=== PATIENT | female | born 1965 | race Caucasian/White ===

== ENCOUNTER 2016-08-15 21:13 | Emergency (ER) | payer SELFPAY ==
[~2016-08-15] VITALS: Ht 152.4 cm; Wt 59.1 kg
[2016-08-16] MEDS ORDERED: SODIUM CHLORIDE 0.9% 1,000 ML IV ONE (01:45)
[2016-08-16] MEDS ORDERED: KETOROLAC TROMETHAMINE 30 MG/ML VIAL IVP ONE (01:45)
[2016-08-16] MEDS ORDERED: ACETAMINOPHEN 500 MG TABLET PO ONE (01:45)
[2016-08-16] MEDS ORDERED: ONDANSETRON HCL 4 MG/2 ML VIAL IVP ONE (01:45)
[2016-08-16 02:28] LABS: HEMATOCRIT 41.8 % (36-46); MEAN CORPUSCULAR HEMOGLOBIN 27.2 pg (26.0-34.0); MEAN CORPUSCULAR HGB CONC 33.4 G/dL (31.0-37.0); MEAN CORPUSCULAR VOLUME 81 fL (80-100); PLATELET COUNT (AUTO) 183 K/uL (150-450); RED BLOOD CELL COUNT(AUTO) 5.13 MIL/uL (4.00-5.20); RED CELL DISTRIBUTION WIDTH 15.6 % (11.5-14.5); WHITE BLOOD COUNT (AUTO) 6.4 K/uL (4.5-11.0)
[2016-08-16 02:31] LABS: CALCIUM, TOTAL 8.2 mg/dL (8.8-10.5); CREATININE 1.03 mg/dL (0.60-1.30); POTASSIUM 3.4 mmol/L (3.5-5.1)
[2016-08-16 03:13] LABS: TOTAL CELLS COUNTED 100
[2016-08-16 03:14] LABS: LYMPHOCYTES % (MANUAL) 22 % (22-44)
[2016-08-16 03:45] VITALS: BP 108/89
== END 2016-08-16 03:47 | disposition home or self-care (01) ==
LOC: EMS 21:26
DX: J06.9 Acute upper respiratory infection, unspecified (principal); R07.89 Other chest pain
CPT/HCPCS: 36415; 80048; 84703; 85025; 96361; 96374; 96375; 99285; J1885; J2405; J7030

== ENCOUNTER 2017-09-20 01:19 | Emergency (ER) | payer MEDICAID ==
[~2017-09-20] VITALS: Ht 149.9 cm; Wt 59.1 kg
[2017-09-20] MEDS ORDERED: NEOMYCIN/POLYMYXIN B/GRAMICIDIN 10 ML OPHTHALMIC SOLUTION OU ONE (02:30)
[2017-09-20 03:29] VITALS: BP 121/76
== END 2017-09-20 03:47 | disposition home or self-care (01) ==
LOC: EMS 01:19
DX: H10.9 Unspecified conjunctivitis (principal)
CPT/HCPCS: 99282

== ENCOUNTER 2017-10-09 21:22 | Emergency (ER) | payer MEDICAID ==
[~2017-10-09] VITALS: Ht 149.9 cm; Wt 59.0 kg
[2017-10-09 23:09] LABS: BASOPHILS % (AUTO) 1.1 % (0.0-2.0); EOSINOPHILS % (AUTO) 0.6 % (1.0-6.0); HEMATOCRIT 39.3 % (36-46); HEMOGLOBIN 13.3 g/dL (12.0-16.0); LYMPHOCYTES # (AUTO) 2.2 K/uL (1.0-4.8); LYMPHOCYTES % (AUTO) 38.3 % (22.0-44.0); MEAN CORPUSCULAR HEMOGLOBIN 27.7 pg (26.0-34.0); MEAN CORPUSCULAR HGB CONC 33.8 G/dL (31.0-37.0); MEAN CORPUSCULAR VOLUME 82 fL (80-100); MONOCYTES # (AUTO) 0.5 K/uL (0.1-1.0); PLATELET COUNT (AUTO) 196 K/uL (150-450); RED BLOOD CELL COUNT(AUTO) 4.79 MIL/uL (4.00-5.20); RED CELL DISTRIBUTION WIDTH 14.8 % (11.5-14.5)
[2017-10-09 23:19] LABS: HEMOGLOBIN A1C 6.8 % (4.5-6.2)
[2017-10-09 23:20] LABS: ANION GAP 7 mmol/L (8-16); CALCIUM, TOTAL 8.8 mg/dL (8.8-10.5); CARBON DIOXIDE 29 mmol/L (22-29); CHLORIDE 104 mmol/L (98-107); CREATININE 0.95 mg/dL (0.60-1.30); GLOMERULAR FILTR. RATE CALC > 60 mL/min (>60); GLUCOSE,RANDOM 142 mg/dL (70-110); POTASSIUM 3.6 mmol/L (3.5-5.1); SODIUM SERUM 140 mmol/L (136-145); UREA NITROGEN, BLOOD 17 mg/dL (7-18)
[2017-10-09 23:35] LABS: ALANINE AMINOTRANSFERASE 27 U/L (12-78); ALBUMIN 3.6 g/dL (3.4-5.0); ALKALINE PHOSPHATASE 99 U/L (46-116); ASPARTATE AMINOTRANSFERASE 21 U/L (15-37); BILIRUBIN,TOTAL 0.3 mg/dL (0.1-1.0); TOTAL PROTEIN, SERUM 8.2 g/dL (6.4-8.2)
[2017-10-10] LABS: PLATELET MORPHOLOGY COMMENT LARGE PLTS PRESENT
[2017-10-10 00:14] VITALS: BP 116/63
== END 2017-10-10 00:30 | disposition home or self-care (01) ==
LOC: EMS 21:23
DX: L65.9 Nonscarring hair loss, unspecified (principal); F41.9 Anxiety disorder, unspecified; R73.9 Hyperglycemia, unspecified
CPT/HCPCS: 83036; 84443; 99284

== ENCOUNTER 2018-02-10 10:00 | Emergency (ER) | payer MEDICAID ==
[~2018-02-10] VITALS: Ht 160 cm; Wt 63.6 kg
[2018-02-10 10:02] VITALS: BP 158/93
== END 2018-02-10 10:45 | disposition left against medical advice (07) ==
LOC: EMS 10:01
DX: J02.9 Acute pharyngitis, unspecified (principal); Z53.21 Procedure and treatment not carried out due to patient leaving prior to being seen by health care provider

== ENCOUNTER 2018-02-10 18:06 | Emergency (ER) | payer MEDICAID ==
[~2018-02-10] VITALS: Ht 149.9 cm; Wt 61.4 kg
[2018-02-10] MEDS ORDERED: IBUPROFEN 600 MG TABLET PO ONE (18:45)
[2018-02-10] MEDS ORDERED: MAALOX/LIDOCAINE/NYSTATIN SUSP 5 ML ORAL.SYG MM ONE (18:45)
[2018-02-10 20:05] VITALS: BP 140/80
== END 2018-02-10 20:20 | disposition home or self-care (01) ==
LOC: EMS 18:08
DX: J02.9 Acute pharyngitis, unspecified (principal); K14.6 Glossodynia; L98.9 Disorder of the skin and subcutaneous tissue, unspecified
CPT/HCPCS: 87430; 99283

== ENCOUNTER 2018-07-17 17:05 | Emergency (ER) | payer MEDICAID ==
[~2018-07-17] VITALS: Ht 149.9 cm; Wt 68.2 kg
[2018-07-17] MEDS ORDERED: KETOROLAC TROMETHAMINE 30 MG/ML VIAL IVP ONE (22:15)
[2018-07-17] MEDS ORDERED: SODIUM CHLORIDE 0.9% 1,000 ML IV ONE (22:15)
[2018-07-17] MEDS ORDERED: PROCHLORPERAZINE EDISYLATE 5 MG/ML 2 ML VIAL IVP ONE (22:15)
[2018-07-17] MEDS ORDERED: DiphenhydrAMINE HCL 50 MG/ML VIAL IVP ONE (22:15)
[2018-07-17 22:25] LABS: BASOPHILS % (AUTO) 0.8 % (0.0-2.0); EOSINOPHILS % (AUTO) 0.4 % (1.0-6.0); HEMATOCRIT 40.9 % (36-46); HEMOGLOBIN 13.6 g/dL (12.0-16.0); LYMPHOCYTES # (AUTO) 2.6 K/uL (1.0-4.8); MEAN CORPUSCULAR HEMOGLOBIN 27.9 pg (26.0-34.0); MEAN CORPUSCULAR HGB CONC 33.3 G/dL (31.0-37.0); MEAN CORPUSCULAR VOLUME 84 fL (80-100); MONOCYTES # (AUTO) 0.4 K/uL (0.1-1.0); MONOCYTES % (AUTO) 6.9 % (2.0-9.0); NEUTROPHILS # (AUTO) 2.7 K/uL (1.8-7.7); NEUTROPHILS % (AUTO) 46.9 % (40.0-70.0); PLATELET COUNT (AUTO) 189 K/uL (150-450); RED BLOOD CELL COUNT(AUTO) 4.89 MIL/uL (4.00-5.20)
[2018-07-17 22:53] LABS: ALBUMIN 3.3 g/dL (3.4-5.0); BILIRUBIN,TOTAL 0.3 mg/dL (0.1-1.0); CALCIUM, TOTAL 9.2 mg/dL (8.8-10.5); CREATININE 1.1 mg/dL (0.60-1.30); POTASSIUM 4.2 mmol/L (3.5-5.1); TOTAL PROTEIN, SERUM 8.2 g/dL (6.4-8.2)
[2018-07-17] MEDS ORDERED: ALBUTEROL SULFATE 2.5 MG/0.5 ML NEB SOLUTION NEB PRN (23:00)
[2018-07-17] MEDS ORDERED: IPRATROPIUM BROMIDE 0.5 MG/2.5 ML NEB SOLUTION NEB PRN (23:00)
[2018-07-17 23:38] LABS: AMPHET/METH SCREEN,URINE POSITIVE (NEGATIVE); BARBITURATE SCREEN, URINE NEGATIVE (NEGATIVE); BENZODIAZEPINES SCREEN,URINE NEGATIVE (NEGATIVE); CANNABINOID SCREEN,URINE NEGATIVE (NEGATIVE); COCAINE SCREEN,URINE NEGATIVE (NEGATIVE); METHADONE SCREEN, URINE NEGATIVE (NEGATIVE); OPIATE SCREEN,URINE NEGATIVE (NEGATIVE)
[2018-07-17 23:40] LABS: PHENCYCLIDINE SCREEN,URINE NEGATIVE (NEGATIVE)
[2018-07-18 00:38] LABS: GLUCOSE,POINT OF CARE 423 MG/DL (70-110)
[2018-07-18] MEDS ORDERED: INSULIN REGULAR, HUMAN 100 UNITS/ML IVP ONE (00:45)
[2018-07-18 01:55] LABS: APPEARANCE,URINE CLEAR (CLEAR); BILIRUBIN,URINE NEGATIVE (NEGATIVE); GLUCOSE, URINE (UA) >=1000 mg/dL (NEGATIVE); KETONES,URINE NEGATIVE (NEGATIVE); LEUKOCYTE ESTERASE ,URINE NEGATIVE (NEGATIVE); NITRATE,URINE NEGATIVE (NEGATIVE); OCCULT BLOOD,URINE NEGATIVE (NEGATIVE); PH,URINE 5.5 (5.0-8.0); PROTEIN,URINE NEGATIVE (NEGATIVE); UROBILINOGEN,URINE 0.2 mg/dL (<=1.0)
[2018-07-18 02:39] LABS: BACTERIA,URINE None Seen /HPF (None Seen); RBC,URINE 0-2 /HPF (0-2); SQUAMOUS EPITHELIAL CELL,UR Rare /LPF (None Seen); WBC,URINE 0-2 /HPF (0-5)
[2018-07-18 03:04] LABS: GLUCOSE,POINT OF CARE 227 MG/DL (70-110)
[2018-07-18 04:31] VITALS: BP 115/69
== END 2018-07-18 04:35 | disposition home or self-care (01) ==
LOC: EMS 17:06
DX: R51 Headache (principal); R73.9 Hyperglycemia, unspecified; M54.2 Cervicalgia
CPT/HCPCS: 36415; 80053; 80307; 81001; 82962; 84702; 85025; 96374; 96375; 99283; J0780; J1200; J1815; J1885; J7030; 96361

== ENCOUNTER 2018-07-24 20:52 | Emergency (ER) | payer MEDICAID ==
[~2018-07-24] VITALS: Ht 149.9 cm; Wt 69.1 kg
[2018-07-24] MEDS ORDERED: NAPR-1193 PO (21:02)
[2018-07-24] MEDS ORDERED: SERT50TA12 PO (21:02)
[2018-07-24] MEDS ORDERED: METF-960 PO (21:02)
[2018-07-24] MEDS ORDERED: AMIT25TA9 PO (21:02)
[2018-07-24] MEDS ORDERED: INSU100I26 SQ (21:02)
[2018-07-24] MEDS ORDERED: SUMA100T PO (21:02)
[2018-07-24] MEDS ORDERED: SODIUM CHLORIDE 0.9% 1,000 ML IV ONE (21:45)
[2018-07-24 22:18] LABS: BASOPHILS % (AUTO) 1.5 % (0.0-2.0); EOSINOPHILS % (AUTO) 0.8 % (1.0-6.0); HEMATOCRIT 43.3 % (36-46); HEMOGLOBIN 14.3 g/dL (12.0-16.0); LYMPHOCYTES # (AUTO) 2.7 K/uL (1.0-4.8); LYMPHOCYTES % (AUTO) 40.9 % (22.0-44.0); MEAN CORPUSCULAR HEMOGLOBIN 27.2 pg (26.0-34.0); MEAN CORPUSCULAR VOLUME 83 fL (80-100); MONOCYTES # (AUTO) 0.5 K/uL (0.1-1.0); MONOCYTES % (AUTO) 7.7 % (2.0-9.0); NEUTROPHILS # (AUTO) 3.3 K/uL (1.8-7.7); NEUTROPHILS % (AUTO) 49.1 % (40.0-70.0); PLATELET COUNT (AUTO) 164 K/uL (150-450); RED BLOOD CELL COUNT(AUTO) 5.25 MIL/uL (4.00-5.20); RED CELL DISTRIBUTION WIDTH 13.7 % (11.5-14.5)
[2018-07-24 22:32] LABS: ALBUMIN 3.6 g/dL (3.4-5.0); BILIRUBIN,TOTAL 0.4 mg/dL (0.1-1.0); CALCIUM, TOTAL 9.3 mg/dL (8.8-10.5); CREATININE 1.05 mg/dL (0.60-1.30); POTASSIUM 3.6 mmol/L (3.5-5.1); TOTAL PROTEIN, SERUM 8.5 g/dL (6.4-8.2)
[2018-07-24 22:39] LABS: GLUCOSE,POINT OF CARE 411 MG/DL (70-110)
[2018-07-25 00:24] LABS: GLUCOSE,POINT OF CARE 385 MG/DL (70-110)
[2018-07-25] MEDS ORDERED: INSULIN REGULAR, HUMAN 100 UNITS/ML IVP ONE (00:30)
[2018-07-25 01:40] VITALS: BP 138/96
== END 2018-07-25 01:49 | disposition home or self-care (01) ==
LOC: EMS 20:53
DX: E11.65 Type 2 diabetes mellitus with hyperglycemia (principal); G43.909 Migraine, unspecified, not intractable, without status migrainosus; F41.9 Anxiety disorder, unspecified; F32.9 Major depressive disorder, single episode, unspecified; Z79.84 Long term (current) use of oral hypoglycemic drugs; Z79.4 Long term (current) use of insulin
CPT/HCPCS: 36415; 80053; 82962; 85025; 96361; 96374; 99283; J1815; J7030

== ENCOUNTER 2020-11-23 23:51 | Emergency (ER) | payer MEDICAID, OTHER ==
[~2020-11-23] VITALS: Ht 149.9 cm; Wt 59.1 kg
[~2020-11-23 23:51] MED LIST: AMIT25TA9 PO; INSU100I26 SQ; METF-960 PO; NAPR-1193 PO; SERT-158 PO; SUMA100T PO
[2020-11-24 00:40] LABS: APPEARANCE,URINE CLEAR (CLEAR); BILIRUBIN,URINE NEGATIVE (NEGATIVE); GLUCOSE, URINE (UA) >=1000 mg/dL (NEGATIVE); KETONES,URINE NEGATIVE (NEGATIVE); LEUKOCYTE ESTERASE ,URINE NEGATIVE (NEGATIVE); NITRATE,URINE NEGATIVE (NEGATIVE); OCCULT BLOOD,URINE NEGATIVE (NEGATIVE); PROTEIN,URINE NEGATIVE (NEGATIVE); UROBILINOGEN,URINE 0.2 mg/dL (<=1.0)
[2020-11-24 00:50] LABS: RBC,URINE None Seen /HPF (0-2); SQUAMOUS EPITHELIAL CELL,UR Rare /LPF (None Seen)
[2020-11-24 00:51] LABS: BACTERIA,URINE Rare /HPF (None Seen); WBC,URINE 0-2 /HPF (0-5)
[2020-11-24 01:19] LABS: BASOPHILS % (AUTO) 1.1 % (0.0-2.0); EOSINOPHILS % (AUTO) 0.8 % (1.0-6.0); HEMATOCRIT 34.1 % (36-46); HEMOGLOBIN 10.7 g/dL (12.0-16.0); LYMPHOCYTES # (AUTO) 3.1 K/uL (1.0-4.8); MEAN CORPUSCULAR HEMOGLOBIN 23.1 pg (26.0-34.0); MEAN CORPUSCULAR HGB CONC 31.3 G/dL (31.0-37.0); MEAN CORPUSCULAR VOLUME 74 fL (80-100); MONOCYTES # (AUTO) 0.5 K/uL (0.1-1.0); MONOCYTES % (AUTO) 6.7 % (2.0-9.0); NEUTROPHILS # (AUTO) 4.1 K/uL (1.8-7.7); NEUTROPHILS % (AUTO) 52.4 % (40.0-70.0); PLATELET COUNT (AUTO) 269 K/uL (150-450); RED BLOOD CELL COUNT(AUTO) 4.62 MIL/uL (4.00-5.20); RED CELL DISTRIBUTION WIDTH 15.3 % (11.5-14.5)
[2020-11-24 01:35] LABS: INR 0.9 (0.9-1.1); PROTHROMBIN TIME 9.8 SEC (9.4-11.6)
[2020-11-24 01:37] LABS: ALANINE AMINOTRANSFERASE 32 U/L (12-78); ALBUMIN 2.8 g/dL (3.4-5.0); ALKALINE PHOSPHATASE 236 U/L (46-116); ANION GAP 10 mmol/L (8-16); ASPARTATE AMINOTRANSFERASE 20 U/L (15-37); BILIRUBIN,TOTAL 0.2 mg/dL (0.1-1.0); CALCIUM, TOTAL 8.5 mg/dL (8.8-10.5); CARBON DIOXIDE 24 mmol/L (22-29); CHLORIDE 95 mmol/L (98-107); CREATINE KINASE, TOTAL ONLY 48 U/L (26-192); CREATININE 0.89 mg/dL (0.60-1.30); GLOMERULAR FILTR. RATE CALC > 60 mL/min (>60); POTASSIUM 3.7 mmol/L (3.5-5.1); SODIUM SERUM 129 mmol/L (136-145); TOTAL PROTEIN, SERUM 7.8 g/dL (6.4-8.2); UREA NITROGEN, BLOOD 15 mg/dL (7-18)
[2020-11-24 01:41] LABS: B-TYPE NATRIURETIC PEPTIDE 16 pg/mL (0-100)
[2020-11-24 01:58] LABS: GLUCOSE,RANDOM 570 mg/dL (70-110)
[2020-11-24 02:55] LABS: LACTIC ACID 2.4 mmol/L (0.4-2.0)
[2020-11-24 03:52] LABS: GLUCOMETER DEV NAME(LOC) ERT.5; GLUCOSE,POINT OF CARE 480 MG/DL (70-110)
[2020-11-24] MEDS ORDERED: INSULIN REGULAR, HUMAN 100 UNITS/ML IVP ONE (04:45)
[2020-11-24] MEDS ORDERED: SODIUM CHLORIDE 0.9% 2,000 ML IV ONE (05:30)
[2020-11-24 06:05] LABS: GLUCOMETER DEV NAME(LOC) ERT.5; GLUCOSE,POINT OF CARE 347 MG/DL (70-110)
[2020-11-24 06:32] LABS: ANION GAP 10 mmol/L (8-16); CALCIUM, TOTAL 7.5 mg/dL (8.8-10.5); CARBON DIOXIDE 23 mmol/L (22-29); CHLORIDE 104 mmol/L (98-107); CREATININE 0.61 mg/dL (0.60-1.30); GLOMERULAR FILTR. RATE CALC > 60 mL/min (>60); GLUCOSE,RANDOM 379 mg/dL (70-110); POTASSIUM 3.4 mmol/L (3.5-5.1); SODIUM SERUM 137 mmol/L (136-145); UREA NITROGEN, BLOOD 13 mg/dL (7-18)
[2020-11-24 06:40] LABS: ALANINE AMINOTRANSFERASE 25 U/L (12-78); ALBUMIN 2.2 g/dL (3.4-5.0); ALKALINE PHOSPHATASE 168 U/L (46-116); ASPARTATE AMINOTRANSFERASE 15 U/L (15-37); BILIRUBIN,TOTAL 0.1 mg/dL (0.1-1.0); TOTAL PROTEIN, SERUM 6.2 g/dL (6.4-8.2)
[2020-11-24 06:58] VITALS: BP 146/84
[2020-11-24 06:59] LABS: GLUCOMETER DEV NAME(LOC) ERT.5; GLUCOSE,POINT OF CARE 314 MG/DL (70-110)
== END 2020-11-24 07:03 | disposition home or self-care (01) ==
LOC: EMS 23:55
DX: E11.65 Type 2 diabetes mellitus with hyperglycemia (principal); E87.2 Acidosis; F32.9 Major depressive disorder, single episode, unspecified; F41.9 Anxiety disorder, unspecified; Z91.14 Patient's other noncompliance with medication regimen; Z79.84 Long term (current) use of oral hypoglycemic drugs; Z79.899 Other long term (current) drug therapy
CPT/HCPCS: 36415; 71045; 80053; 81001; 82550; 82962; 83605; 83880; 84484; 85025; 85610; 85730; 93005; 96361; 96374; 99285; J1815; J7030; 99283

== ENCOUNTER 2020-12-25 14:27 | Emergency (ER) | payer OTHER ==
[~2020-12-25] VITALS: Ht 149.9 cm; Wt 65.9 kg
[~2020-12-25 14:27] MED LIST changes: +AMIT25TA10 PO; -AMIT25TA9 PO
[2020-12-25 17:45] LABS: BASOPHILS % (AUTO) 0.6 % (0.0-2.0); EOSINOPHILS % (AUTO) 0.6 % (1.0-6.0); HEMATOCRIT 31.6 % (36-46); HEMOGLOBIN 9.7 g/dL (12.0-16.0); LYMPHOCYTES # (AUTO) 2.6 K/uL (1.0-4.8); LYMPHOCYTES % (AUTO) 31.3 % (22.0-44.0); MEAN CORPUSCULAR HEMOGLOBIN 21.7 pg (26.0-34.0); MEAN CORPUSCULAR HGB CONC 30.7 G/dL (31.0-37.0); MEAN CORPUSCULAR VOLUME 71 fL (80-100); MONOCYTES # (AUTO) 0.4 K/uL (0.1-1.0); NEUTROPHILS # (AUTO) 5.3 K/uL (1.8-7.7); NEUTROPHILS % (AUTO) 62.5 % (40.0-70.0); PLATELET COUNT (AUTO) 304 K/uL (150-450); RED BLOOD CELL COUNT(AUTO) 4.46 MIL/uL (4.00-5.20); RED CELL DISTRIBUTION WIDTH 15.9 % (11.5-14.5)
[2020-12-25 17:57] LABS: ANION GAP 8 mmol/L (8-16); CALCIUM, TOTAL 8.6 mg/dL (8.8-10.5); CARBON DIOXIDE 24 mmol/L (22-29); CHLORIDE 101 mmol/L (98-107); CREATININE 0.77 mg/dL (0.60-1.30); GLOMERULAR FILTR. RATE CALC > 60 mL/min (>60); GLUCOSE,RANDOM 296 mg/dL (70-110); POTASSIUM 3.5 mmol/L (3.5-5.1); SODIUM SERUM 133 mmol/L (136-145); UREA NITROGEN, BLOOD 17 mg/dL (7-18)
[2020-12-25] MEDS ORDERED: KETOROLAC TROMETHAMINE 30 MG/ML VIAL IVP ONE (18:00)
[2020-12-25] MEDS ORDERED: SODIUM CHLORIDE 0.9% 1,000 ML IV ONE ×2 (18:00→19:00)
[2020-12-25 18:08] LABS: ALANINE AMINOTRANSFERASE 25 U/L (12-78); ALBUMIN 3.1 g/dL (3.4-5.0); ALKALINE PHOSPHATASE 129 U/L (46-116); ASPARTATE AMINOTRANSFERASE 18 U/L (15-37); BILIRUBIN,TOTAL 0.3 mg/dL (0.1-1.0); HCG,QUANTITATIVE 5 mIU/mL (0-6); LIPASE 139 U/L (73-393); TOTAL PROTEIN, SERUM 7.6 g/dL (6.4-8.2)
[2020-12-25 18:33] LABS: COVID AG,FIA SOURCE NASOPHARYNGEAL
[2020-12-25 18:53] VITALS: BP 134/91
[2020-12-25 19:59] LABS: APPEARANCE,URINE CLOUDY (CLEAR); BILIRUBIN,URINE NEGATIVE (NEGATIVE); GLUCOSE, URINE (UA) >=1000 mg/dL (NEGATIVE); KETONES,URINE NEGATIVE (NEGATIVE); LEUKOCYTE ESTERASE ,URINE NEGATIVE (NEGATIVE); NITRATE,URINE NEGATIVE (NEGATIVE); OCCULT BLOOD,URINE NEGATIVE (NEGATIVE); PH,URINE 5.5 (5.0-8.0); PROTEIN,URINE NEGATIVE (NEGATIVE); UROBILINOGEN,URINE 0.2 mg/dL (<=1.0)
[2020-12-25 20:11] LABS: RBC,URINE None Seen /HPF (0-2)
[2020-12-25 20:12] LABS: BACTERIA,URINE Few /HPF (None Seen); SQUAMOUS EPITHELIAL CELL,UR Few /LPF (None Seen)
== END 2020-12-25 20:54 | disposition home or self-care (01) ==
LOC: EMS 14:28
DX: E11.65 Type 2 diabetes mellitus with hyperglycemia (principal); N39.0 Urinary tract infection, site not specified; R91.1 Solitary pulmonary nodule; Z20.822 Contact with and (suspected) exposure to COVID-19
CPT/HCPCS: 36415; 74176; 80053; 81001; 83690; 84702; 85025; 87086; 87426; 96361; 96374; 99285; J1885; J7030

== ENCOUNTER 2021-04-02 22:20 | Emergency (ER) | payer OTHER ==
[~2021-04-02] VITALS: Ht 149.9 cm; Wt 63.6 kg
[~2021-04-02 22:20] MED LIST changes: +METF-1211 PO; -METF-960 PO
[2021-04-02 23:28] VITALS: BP 132/68
[2021-04-02 23:32] LABS: GLUCOMETER DEV NAME(LOC) ERT.5; GLUCOSE,POINT OF CARE 518 MG/DL (70-110)
[2021-04-02] MEDS ORDERED: SODIUM CHLORIDE 0.9% 2,000 ML IV ONE (23:45)
[2021-04-02] MEDS ORDERED: INSULIN REGULAR, HUMAN 100 UNITS/ML IVP ONE (23:45)
[2021-04-02 23:49] LABS: BASOPHILS % (AUTO) 0.6 % (0.0-2.0); EOSINOPHILS % (AUTO) 0.4 % (1.0-6.0); HEMATOCRIT 29.1 % (36-46); HEMOGLOBIN 8.4 g/dL (12.0-16.0); LYMPHOCYTES # (AUTO) 1.9 K/uL (1.0-4.8); LYMPHOCYTES % (AUTO) 21.5 % (22.0-44.0); MEAN CORPUSCULAR HEMOGLOBIN 19.4 pg (26.0-34.0); MEAN CORPUSCULAR HGB CONC 28.9 G/dL (31.0-37.0); MEAN CORPUSCULAR VOLUME 67 fL (80-100); MONOCYTES # (AUTO) 0.5 K/uL (0.1-1.0); MONOCYTES % (AUTO) 5.1 % (2.0-9.0); NEUTROPHILS # (AUTO) 6.6 K/uL (1.8-7.7); NEUTROPHILS % (AUTO) 72.4 % (40.0-70.0); PLATELET COUNT (AUTO) 358 K/uL (150-450); RED BLOOD CELL COUNT(AUTO) 4.34 MIL/uL (4.00-5.20); RED CELL DISTRIBUTION WIDTH 16.5 % (11.5-14.5)
[2021-04-02] MEDS ORDERED: DiphenhydrAMINE HCL 50 MG/ML VIAL IVP STA (23:55)
[2021-04-03] MEDS ORDERED: METOCLOPRAMIDE HCL 5 MG/ML 2 ML VIAL IVP ONE
[2021-04-03] MEDS ORDERED: KETOROLAC TROMETHAMINE 30 MG/ML VIAL IVP ONE
[2021-04-03] MEDS ORDERED: ACETAMINOPHEN 500 MG TABLET PO ONE
[2021-04-03 00:02] LABS: ALBUMIN 2.9 g/dL (3.4-5.0); BILIRUBIN,TOTAL 0.2 mg/dL (0.1-1.0); CALCIUM, TOTAL 8.8 mg/dL (8.8-10.5); CREATININE 1.11 mg/dL (0.60-1.30); POTASSIUM 4.3 mmol/L (3.5-5.1); TOTAL PROTEIN, SERUM 8.2 g/dL (6.4-8.2)
[2021-04-03 01:36] LABS: APPEARANCE,URINE CLEAR (CLEAR); BILIRUBIN,URINE NEGATIVE (NEGATIVE); GLUCOSE, URINE (UA) >=1000 mg/dL (NEGATIVE); KETONES,URINE NEGATIVE (NEGATIVE); LEUKOCYTE ESTERASE ,URINE NEGATIVE (NEGATIVE); NITRATE,URINE NEGATIVE (NEGATIVE); OCCULT BLOOD,URINE NEGATIVE (NEGATIVE); PH,URINE 6.5 (5.0-8.0); PROTEIN,URINE NEGATIVE (NEGATIVE); UROBILINOGEN,URINE 0.2 mg/dL (<=1.0)
[2021-04-03 01:38] LABS: BACTERIA,URINE Rare /HPF (None Seen); RBC,URINE 0-2 /HPF (0-2); WBC,URINE 0-2 /HPF (0-5)
[2021-04-03 02:19] LABS: GLUCOMETER DEV NAME(LOC) ERT.5; GLUCOSE,POINT OF CARE 238 MG/DL (70-110)
== END 2021-04-03 03:11 | disposition home or self-care (01) ==
LOC: EMS 22:24
DX: E11.65 Type 2 diabetes mellitus with hyperglycemia (principal); D50.9 Iron deficiency anemia, unspecified; G43.909 Migraine, unspecified, not intractable, without status migrainosus; F41.9 Anxiety disorder, unspecified; F32.9 Major depressive disorder, single episode, unspecified; Z79.84 Long term (current) use of oral hypoglycemic drugs; Z79.4 Long term (current) use of insulin
CPT/HCPCS: 36415; 80053; 81001; 82962; 83690; 85025; 93005; 96361; 96374; 96375; 99284; J1200; J1815; J1885; J2765; J7030; 82948

== ENCOUNTER 2021-09-16 14:26 | Emergency (ER) | payer OTHER ==
[~2021-09-16] VITALS: Ht 149.9 cm; Wt 63.6 kg
[2021-09-16] MEDS ORDERED: SODIUM CHLORIDE 0.9% 1,000 ML IV ONE (15:15)
[2021-09-16] MEDS ORDERED: INSULIN REGULAR, HUMAN 100 UNITS/ML IVP ONE (15:15)
[2021-09-16 15:37] LABS: CALCIUM, TOTAL 8.9 mg/dL (8.8-10.5); CREATININE 1.12 mg/dL (0.60-1.30); POTASSIUM 4.3 mmol/L (3.5-5.1)
[2021-09-16] MEDS ORDERED: SULF-261 PO (15:51)
[2021-09-16] MEDS ORDERED: CEPH-558 PO (15:51)
[2021-09-16 16:19] VITALS: BP 176/80
[2021-09-16] MEDS ORDERED: SUMA100T PO (16:23)
[2021-09-16] MEDS ORDERED: INSLAN SQ (16:23)
[2021-09-16 16:31] LABS: GLUCOSE,POINT OF CARE 234 MG/DL (70-110)
== END 2021-09-16 16:51 | disposition home or self-care (01) ==
LOC: EMS 14:26
DX: E11.65 Type 2 diabetes mellitus with hyperglycemia (principal); L02.411 Cutaneous abscess of right axilla; F41.9 Anxiety disorder, unspecified; F32.9 Major depressive disorder, single episode, unspecified; E11.9 Type 2 diabetes mellitus without complications; G43.909 Migraine, unspecified, not intractable, without status migrainosus; Z79.4 Long term (current) use of insulin; Z79.84 Long term (current) use of oral hypoglycemic drugs
CPT/HCPCS: 36415; 80048; 82962; 96361; 96374; 99283; J1815; J7030

== ENCOUNTER 2021-10-11 01:30 | Emergency (ER) | payer OTHER ==
[~2021-10-11] VITALS: Ht 149.9 cm; Wt 59.1 kg
[~2021-10-11 01:30] MED LIST changes: +CEPH-558 PO; +INSLAN SQ; +SULF-261 PO
[2021-10-11] MEDS ORDERED: INSLAN SQ (01:41)
[2021-10-11] MEDS ORDERED: METF-1211 PO (01:41)
[2021-10-11 02:19] LABS: COVID AG,FIA SOURCE NASAL SWAB
[2021-10-11 02:25] LABS: BASOPHILS % (AUTO) 0.8 % (0.0-2.0); EOSINOPHILS % (AUTO) 0.6 % (1.0-6.0); HEMATOCRIT 24.6 % (36-46); LYMPHOCYTES # (AUTO) 1.8 K/uL (1.0-4.8); LYMPHOCYTES % (AUTO) 21.6 % (22.0-44.0); MEAN CORPUSCULAR HEMOGLOBIN 17.4 pg (26.0-34.0); MEAN CORPUSCULAR HGB CONC 28.1 G/dL (31.0-37.0); MEAN CORPUSCULAR VOLUME 62 fL (80-100); MONOCYTES # (AUTO) 0.5 K/uL (0.1-1.0); MONOCYTES % (AUTO) 6.1 % (2.0-9.0); NEUTROPHILS % (AUTO) 70.9 % (40.0-70.0); PLATELET COUNT (AUTO) 369 K/uL (150-450); RED BLOOD CELL COUNT(AUTO) 3.97 MIL/uL (4.00-5.20)
[2021-10-11 02:35] LABS: HEMOGLOBIN 6.9 g/dL (12.0-16.0)
[2021-10-11 02:36] LABS: ALBUMIN 2.7 g/dL (3.4-5.0); BILIRUBIN,TOTAL 0.2 mg/dL (0.1-1.0); CALCIUM, TOTAL 8.1 mg/dL (8.8-10.5); CREATININE 1.2 mg/dL (0.60-1.30); POTASSIUM 3.8 mmol/L (3.5-5.1); TOTAL PROTEIN, SERUM 7.5 g/dL (6.4-8.2)
[2021-10-11] MEDS ORDERED: SODIUM CHLORIDE 0.9% 2,000 ML IV ONE (04:00)
[2021-10-11] MEDS ORDERED: INSULIN REGULAR, HUMAN 100 UNITS/ML IVP ONE (04:00)
[2021-10-11 04:26] LABS: % IRON SATURATION 2.7 % (22-44)
[2021-10-11] MEDS ORDERED: IRON SUCROSE COMPLEX 100 MG in SODIUM CHLORIDE 0.9% 100 ML IV ONE (06:00)
[2021-10-11] MEDS ORDERED: FERR325T27 PO (06:07)
[2021-10-11 06:11] LABS: GLUCOMETER DEV NAME(LOC) ERT.5; GLUCOSE,POINT OF CARE 146 MG/DL (70-110)
[2021-10-11 07:17] VITALS: BP 124/68
== END 2021-10-11 07:26 | disposition home or self-care (01) ==
LOC: EMS 01:31
DX: D50.9 Iron deficiency anemia, unspecified (principal); E11.65 Type 2 diabetes mellitus with hyperglycemia; F41.9 Anxiety disorder, unspecified; F32.9 Major depressive disorder, single episode, unspecified; Z79.4 Long term (current) use of insulin; Z79.899 Other long term (current) drug therapy; Z20.822 Contact with and (suspected) exposure to COVID-19
CPT/HCPCS: 36415; 71045; 80053; 82962; 83540; 83550; 83690; 84484; 85025; 86850; 86900; 86901; 86923; 87426; 93005; 96361; 96365; 96375; 99285; J1756; J1815; J7030; J7050

== ENCOUNTER 2021-10-23 17:48 | Emergency (ER) | payer OTHER ==
[~2021-10-23] VITALS: Ht 149.9 cm; Wt 63.6 kg
[~2021-10-23 17:48] MED LIST changes: -AMIT25TA10 PO; -CEPH-558 PO; +FERR325T27 PO; -INSU100I26 SQ; -NAPR-1193 PO; -SERT-158 PO; -SULF-261 PO
[2021-10-23 19:14] VITALS: BP 129/77
[2021-10-23 19:26] LABS: GLUCOSE,POINT OF CARE 401 MG/DL (70-110)
== END 2021-10-23 21:19 | disposition left against medical advice (07) ==
LOC: EMS 17:50
DX: R73.9 Hyperglycemia, unspecified (principal); Z53.21 Procedure and treatment not carried out due to patient leaving prior to being seen by health care provider
CPT/HCPCS: 82962

== ENCOUNTER 2022-03-15 05:34 | Emergency (ER) | payer OTHER ==
[~2022-03-15] VITALS: Ht 149.9 cm; Wt 54.5 kg
[2022-03-15 08:22] VITALS: BP 135/80
== END 2022-03-15 08:23 | disposition home or self-care (01) ==
LOC: EMS 05:39
DX: Z48.02 Encounter for removal of sutures (principal); F41.9 Anxiety disorder, unspecified; F32.A Depression, unspecified; E11.9 Type 2 diabetes mellitus without complications; G43.909 Migraine, unspecified, not intractable, without status migrainosus; Z98.890 Other specified postprocedural states
CPT/HCPCS: 99281; Z7502

== ENCOUNTER 2023-02-05 21:05 | Emergency (ER) | payer OTHER ==
[~2023-02-05] VITALS: Ht 149.9 cm; Wt 54.5 kg
[~2023-02-05 21:05] MED LIST changes: -SUMA100T PO; +SUMA100T21 PO
[2023-02-05 22:07] VITALS: TEMP 97.7
[2023-02-05] MEDS ORDERED: GENTAMICIN SULFATE 0.3% OPHTHALMIC SOLUTION 5 ML OS ONE (22:30)
[2023-02-05] MEDS ORDERED: INSLAN SQ (22:34)
[2023-02-05 22:36] LABS: GLUCOMETER DEV NAME(LOC) ERT.5; GLUCOSE,POINT OF CARE > 600 MG/DL (70-110)
[2023-02-05] MEDS ORDERED: INSULIN REGULAR, HUMAN 100 UNITS/ML SQ ONE (22:45)
[2023-02-05] MEDS ORDERED: INSULIN GLARGINE,HUM.REC.ANLOG 100 UNITS/ML SQ ONE (22:45)
[2023-02-06] MEDS ORDERED: INSULIN REGULAR, HUMAN 100 UNITS/ML SQ ONE
[2023-02-06 00:06] LABS: GLUCOMETER DEV NAME(LOC) ERT.5; GLUCOSE,POINT OF CARE 556 MG/DL (70-110)
[2023-02-06 00:29] VITALS: BP 163/93; PULSE 99; RESP 20
== END 2023-02-06 00:37 | disposition home or self-care (01) ==
LOC: EMS 21:05
DX: H10.9 Unspecified conjunctivitis (principal); E11.65 Type 2 diabetes mellitus with hyperglycemia; Z98.890 Other specified postprocedural states
CPT/HCPCS: 99284; 82962; 96372; J1815 ×2

== ENCOUNTER 2023-05-08 06:23 | Emergency (ER) | payer OTHER ==
[~2023-05-08] VITALS: Ht 167.6 cm; Wt 81.8 kg
[2023-05-08] MEDS ORDERED: SODIUM CHLORIDE 0.9% 1,000 ML IV ONE (07:30)
[2023-05-08 07:59] LABS: EOSINOPHILS % (AUTO) 0.8 % (1.0-6.0); HEMATOCRIT 43.8 % (36-46); HEMOGLOBIN 15.2 g/dL (12.0-16.0); LYMPHOCYTES # (AUTO) 1.7 K/uL (1.0-4.8); LYMPHOCYTES % (AUTO) 32.4 % (22.0-44.0); MEAN CORPUSCULAR HEMOGLOBIN 30.3 pg (26.0-34.0); MEAN CORPUSCULAR HGB CONC 34.8 G/dL (31.0-37.0); MEAN CORPUSCULAR VOLUME 87 fL (80-100); MONOCYTES # (AUTO) 0.3 K/uL (0.1-1.0); MONOCYTES % (AUTO) 6.2 % (2.0-9.0); NEUTROPHILS # (AUTO) 3.2 K/uL (1.8-7.7); NEUTROPHILS % (AUTO) 59.6 % (40.0-70.0); PLATELET COUNT (AUTO) 151 K/uL (150-450); RED BLOOD CELL COUNT(AUTO) 5.03 MIL/uL (4.00-5.20); WHITE BLOOD COUNT (AUTO) 5.3 K/uL (4.5-11.0)
[2023-05-08 08:13] LABS: TROPONIN I-HIGH SENSITIVITY 11 ng/L (<51)
[2023-05-08 08:14] LABS: B-TYPE NATRIURETIC PEPTIDE 7 pg/mL (0-100)
[2023-05-08 08:16] LABS: ALANINE AMINOTRANSFERASE 22 U/L (12-78); ALBUMIN 3.7 g/dL (3.4-5.0); ALKALINE PHOSPHATASE 163 U/L (46-116); ANION GAP 9 mmol/L (8-16); ASPARTATE AMINOTRANSFERASE 10 U/L (15-37); BILIRUBIN,TOTAL 0.4 mg/dL (0.1-1.0); CALCIUM, TOTAL 9.6 mg/dL (8.8-10.5); CARBON DIOXIDE 26 mmol/L (22-29); CHLORIDE 99 mmol/L (98-107); CREATININE 0.68 mg/dL (0.60-1.30); GLOMERULAR FILTR. RATE CALC > 60 mL/min (>60); POTASSIUM 4.1 mmol/L (3.5-5.1); SODIUM SERUM 134 mmol/L (136-145); TOTAL PROTEIN, SERUM 8.4 g/dL (6.4-8.2); UREA NITROGEN, BLOOD 9 mg/dL (7-18)
[2023-05-08 08:20] LABS: GLUCOSE,RANDOM 434 mg/dL (70-110)
[2023-05-08 08:21] LABS: ACETONE,BLOOD NEGATIVE (NEGATIVE)
[2023-05-08] MEDS ORDERED: INSULIN REGULAR, HUMAN 100 UNITS/ML IVP ONE ×2 (08:30→10:45)
[2023-05-08 11:04] LABS: APPEARANCE,URINE CLEAR (CLEAR); BILIRUBIN,URINE NEGATIVE (NEGATIVE); COLOR,URINE COLORLESS (YELLOW); GLUCOSE, URINE (UA) >=1000 mg/dL (NEGATIVE); KETONES,URINE TRACE mg/dL (NEGATIVE); LEUKOCYTE ESTERASE ,URINE NEGATIVE (NEGATIVE); NITRATE,URINE NEGATIVE (NEGATIVE); OCCULT BLOOD,URINE NEGATIVE (NEGATIVE); PH,URINE 5.5 (5.0-8.0); PROTEIN,URINE NEGATIVE (NEGATIVE); SPECIFIC GRAVITIY, URINE 1.039 (1.003-1.030); UROBILINOGEN,URINE <=1.0 mg/dL (<=1.0)
[2023-05-08 11:20] VITALS: TEMP 98.5
[2023-05-08 11:53] LABS: BACTERIA,URINE None Seen /HPF (None Seen); RBC,URINE None Seen /HPF (0-2); SQUAMOUS EPITHELIAL CELL,UR Few /LPF (None Seen); WBC,URINE None Seen /HPF (0-5)
[2023-05-08 12:19] VITALS: BP 148/62; PULSE 81; RESP 18
[2023-05-08] MEDS ORDERED: INSLAN SQ (12:37)
== END 2023-05-08 13:19 | disposition home or self-care (01) ==
LOC: EMS 06:23
DX: E11.65 Type 2 diabetes mellitus with hyperglycemia (principal); E86.0 Dehydration; E11.9 Type 2 diabetes mellitus without complications; Z98.890 Other specified postprocedural states
CPT/HCPCS: 99285; 96374; 71045; 96361; 80053; 81001; 82009; 83605; 83880; 84484; 85025; 36415; 93005; 96376; 82962; J1815; J7030

== ENCOUNTER 2023-10-22 21:47 | Emergency (ER) | payer OTHER ==
[~2023-10-22] VITALS: Ht 149.9 cm; Wt 48.0 kg
[2023-10-22 22:08] VITALS: BP 158/96; PULSE 104; RESP 18; TEMP 98.4
[2023-10-22] MEDS: AMOX TR/POT CLAV 875 MG/125 MG TABLET PO ONE (23:26)
[2023-10-22] MEDS: ACETAMINOPHEN 325 MG TABLET PO ONE (23:26)
[2023-10-22] MEDS: POLYMYXIN B/TRIMETHOPRIM 10 ML OPHTHALMIC SOLUTION OU ONE (23:26)
[2023-10-22] MEDS ORDERED: ACET-2247 PO (23:28)
[2023-10-22] MEDS ORDERED: AMOX1TAB16 PO (23:28)
[2023-10-22] MEDS ORDERED: POLYOS OU (23:28)
== END 2023-10-23 01:04 | disposition home or self-care (01) ==
LOC: EMS 21:48
DX: H10.023 Other mucopurulent conjunctivitis, bilateral (principal); E11.9 Type 2 diabetes mellitus without complications; J02.9 Acute pharyngitis, unspecified
CPT/HCPCS: 87430; 99284; Z7502; Z7610

== ENCOUNTER 2023-11-08 11:39 | Emergency (ER) | payer OTHER ==
[~2023-11-08] VITALS: Ht 162.6 cm; Wt 75.0 kg
[~2023-11-08 11:39] MED LIST changes: +ACET-2247 PO; +AMOX-457 PO; +POLYOS OU
[2023-11-08 12:09] VITALS: TEMP 97.9
[2023-11-08] MEDS ORDERED: UNKNOWN INSULIN SQ (12:15)
[2023-11-08] MEDS ORDERED: ACET-66 PO (14:39)
[2023-11-08] MEDS ORDERED: IBUP-1554 PO (14:39)
[2023-11-08 15:00] VITALS: BP 135/90; PULSE 90; RESP 16
[2023-11-08] MEDS: IBUPROFEN 600 MG TABLET PO ONE (15:13)
== END 2023-11-08 15:15 | disposition home or self-care (01) ==
LOC: EMS 11:39
DX: S70.12XA Contusion of left thigh, initial encounter (principal); E11.9 Type 2 diabetes mellitus without complications; V03.10XA Pedestrian on foot injured in collision with car, pick-up truck or van in traffic accident, initial encounter; Y93.01 Activity, walking, marching and hiking; Y92.89 Other specified places as the place of occurrence of the external cause; Y99.8 Other external cause status
CPT/HCPCS: 73503; 82962; 99284